=== PATIENT | female | born 1995 | race African-American/Black ===

== ENCOUNTER 2022-07-10 09:11 | Emergency (ER) | payer MEDICAID ==
[~2022-07-10] VITALS: Ht 152.4 cm; Wt 62.0 kg
[2022-07-10 09:16] VITALS: BP 113/60
[2022-07-10 10:49] LABS: CLARITY URINE CLEAR (CLEAR); COLOR URINE YELLOW (YELLOW); KETONES URINE 1+ (NEGATIVE); LEUKOCYTE ESTERASE URINE 2+ (NEGATIVE); NITRITE URINE NEGATIVE (NEGATIVE); OCCULT BLOOD URINE 2+ (NEGATIVE); PROTEIN URINE TRACE (NEGATIVE); SPECIFIC GRAVITY URINE 1.024 (1.005-1.030)
[2022-07-10] MEDS ORDERED: CEPH500C2 PO (12:29)
== END 2022-07-10 12:17 | disposition left against medical advice (07) ==
LOC: ER 09:27
DX: O20.9 Hemorrhage in early pregnancy, unspecified (principal); Z3A.01 Less than 8 weeks gestation of pregnancy; Z53.21 Procedure and treatment not carried out due to patient leaving prior to being seen by health care provider
CPT/HCPCS: 81003; 81025; 99281; 99283